=== PATIENT | male | born 1985 | race Caucasian/White ===

== ENCOUNTER 2017-06-03 20:24 | Emergency (ER) | payer OTHER ==
[~2017-06-03] VITALS: Ht 160 cm; Wt 59.4 kg
[~2017-06-03 20:24] MED LIST: ACCUNEB SO1.25 MG/1; ACID CONTROL20 MG; AMOXICILLIN 50500 MG PO; APIDRA SC; BACTRIM DS TAB1 EACH PO; BENTYL20 MG PO; CO Q-10100 MG PO; CRESTOR10 MG; CRESTOR10 MG PO; CRESTOR5 MG PO; DOXYCYCLINE 10100 MG PO; FISH OIL 1,001000 M2; FISHOIL; FLEXERIL PO; GABAPENTIN800 M1 PO; HUMALOG MI100 UNIT/2; HUMALOG PEN; HYDROCODONE-AP1 EAC6 PO; HYDROXYZINE HCL25 M1 PO; LANTUS SC; LEVEMIR SUBQ; LIPITOR; LIPITOR 10 MG10 M1 PO; LISINOPRIL20 MG; LISINOPRIL5 MG; LORTAB 10 MG-3473 ML PO; NORCO 5-325 TA1 EACH PO; ONDANSETRON HCL4 M2 PO; PAXIL10 MG PO; PAXIL30 MG PO; PREDNISONE 20 M20 M1 PO; PROAIR HFA8.5 GM IH; TESSALON PERLE100 MG PO; TRIAMCINOLONE A80 G2 TOP; TRICOR145 MG PO; VENTOLIN HFA 1818 GM INH; VICODIN 5-5001 EACH PO; VITAMIN D1000 UNI1 PO; VITAMIN D400 UNI1 PO; ZPAK PO
[2017-06-03] MEDS ORDERED: BACTRIM DS TAB1 EACH PO (20:45)
[2017-06-03] MEDS ORDERED: NIZORAL120 ML TOP (20:45)
[2017-06-03 21:00] VITALS: BP 123/89
== END 2017-06-03 21:03 | disposition home or self-care (01) ==
LOC: M.ERS 20:24
DX: L73.9 Follicular disorder, unspecified (principal); E11.9 Type 2 diabetes mellitus without complications; E78.00 Pure hypercholesterolemia, unspecified; F41.9 Anxiety disorder, unspecified; Z88.8 Allergy status to other drugs, medicaments and biological substances; Z79.4 Long term (current) use of insulin